=== PATIENT | female | born 1970 | race American Indian/Alaskan Native ===

== ENCOUNTER 2018-03-17 16:53 | Emergency (ER) | payer BC ==
[2018-03-17 16:53] VITALS: BMI 40.7
[2018-03-17 17:18] VITALS: BP 108/65; PULSE 67; RESP 18; TEMP 98.2; O2SAT 100
--- NOTE | 2018-03-17 19:24 | C.PDOC ---
History Of Present Illness <Milan Lorenzo - Last Filed: 03/17/18 19:10> <Rudy Velasquez - Last Filed: 03/17/18 20:18> CC "lower extremity swelling, shortness of breath" HPI: Patient is a 48 year old female with history of gastritis, gastric ulcer, diverticulitis, currently being treated for H. pylori, anemia, uterine fibroid, phlebolith who reports for evaluation of bilateral lower extremity swelling and pain. She states she woke up 6 days ago with swelling extending from left ankle up to left mid thigh and constant pain in her left calf described as sharp, shooting, electric shock like pain. She states she has also had some intermittent achy pain and swelling in her right calf for the past 6 days as well. She also reports she started to have chest pain 5 days ago, which has since resolved. She went to transport truck driver Dr. Mayo who did an EKG in the office which was reportedly normal. She also states she has been short of breath for the past 6 days; she states she gets short of breath easily and it takes her 10 mins to walk 2 blocks, which is not typical for her She was also referred to Dr. Woods for her shortness of breath and lower extremity swelling who referred patient in for evaluation in the ED. She denies recent travel, recent immobilization, recent surgery, control use. Social: denies smoking, alcohol or drug use. Currently works as a health educator. Family hx: father had prostate cancer PMH: gastritis, gastric ulcer, diverticulitis, currently being treated for H. pylori, anemia, uterine fibroid, phlebolith PSH: mini lapromyomectomy Meds: Flagyl, Doxycycline, Pantoprazole Allergies: oral Lamisil - rash and swelling, avocado- vomiting. Cardio: Gael Pulm: Chuck GI: [place] (Milan Lorenzo) <Milan Lorenzo - Last Filed: 03/17/18 19:10> <Rudy Velasquez - Last Filed: 03/17/18 20:18> Time Seen by Provider: 03/17/18 18:17 Chief Complaint (Nursing): Lower Extremity Problem/Injury Past Medical History - Medical History PMH: Anemia, Arthritis, Bronchitis, Diverticulitis, Gastritis, Gastrointestinal Ulcer, Hiatal Hernia, Hypercholesterolemia, Sleep Apnea Denies: Chronic Kidney Disease Surgical History: Endoscopy - Social History Hx Alcohol Use: Yes Hx Substance Use: No - Immunization History Hx Tetanus Toxoid Vaccination: Yes Hx Influenza Vaccination: Yes Hx Pneumococcal Vaccination: No <Milan Lorenzo - Last Filed: 03/17/18 19:10> Family History: States: No Known Family Hx <Rudy Velasquez - Last Filed: 03/17/18 20:18> Vital Signs: Last Vital Signs Temp 98.2 F 03/17/18 17:10 Pulse 67 03/17/18 17:10 Resp 18 03/17/18 17:10 BP 108/65 03/17/18 17:10 Pulse Ox 100 03/17/18 19:29 Review Of Systems Constitutional: Negative for: Fever, Chills Cardiovascular: Positive for: Edema (lower extremiti). Negative for: Palpitations Respiratory: Positive for: Shortness of Breath, SOB with Excertion. Negative for: Cough Gastrointestinal: Positive for: Abdominal Pain (mild left lower abdominal pain ) . Negative for: Nausea, Vomiting Genitourinary: Negative for: Dysuria, Frequency Musculoskeletal: Positive for: Leg Pain. Negative for: Foot Pain Neurological: Negative for: Change in Speech, Confusion, Seizures, Altered Mental Status, Dizziness <Milan Lorenzo - Last Filed: 03/17/18 19:10> Physical Exam - Physical Exam Appears: Non-toxic Skin: Normal Color, Warm, Dry, No Diaphoretic, No Pale, No Rash, No Cyanotic Head: Atraumatic, Normacephalic Eye(s): bilateral: PERRL, EOMI Oral Mucosa: Moist Neck: No Midline Cervical Tenderness Chest: No Tenderness, No Ecchymosis Cardiovascular: Rhythm Regular, No Friction Rub, No Murmur Respiratory: Normal Breath Sounds, No Rales, No Rhonchi, No Stridor, No Wheezing Gastrointestinal/Abdominal: Bowel Sounds, Soft, Tenderness (minimal LLQ tenderness ) Back: No CVA Tenderness Extremity: Calf Tenderness (bilateral tenderness, left>right, tenderness extending up to back of left thigh), Swelling (bilateral edema of lower extremities extending from ankles up to thigh. nonpitting edema. ) Pulses: Left Dorsalis Pedis: Normal, Right Dorsalis Pedis: Normal Neurological/Psych: Oriented x3, Normal Speech <Milan Lorenzo - Last Filed: 03/17/18 19:10> ED Course And Treatment O2 Sat by Pulse Oximetry: 100 <Milan Lorenzo - Last Filed: 03/17/18 19:10> - AMA Patient Left Against Medical Advice: The patient declines admission to the hospital and wishes to leave the Emergency Department. This action is against my medical advice. This decision was made with informed refusal. The patient was told that admission to the hospital is necessary. Explanation of the reasons why were discussed. The risks of leaving were explained to the patient and include, but are not limited to, worsening of known or currently unknown conditions, permanent disability and from undiagnosed or untreated conditions. The patient has the capacity to make this informed decision and understands my explanation of the current medical problem and risks of leaving. The patient voluntarily accepts these risks and signed an AMA form documenting our conversation. The patient was given the opportunity to ask questions and reconsider. The patient was encouraged to return to the Emergency Department at any time for further care. Medical Decision Making <Milan Lorenzo - Last Filed: 03/17/18 19:10> <Rudy Velasquez - Last Filed: 03/17/18 20:18> Medical Decision Making: Seen and examined with resident. 48 y/o F p/w leg swelling and chest pain and dyspnea. On examination, bilateral leg edema. Patient was informed that doppler not available at this time of day at [facility] but that she required further evaluation for chest pain and dyspnea including CTA Chest to rule out PE. She wished to leave and stated she will go to [facility] to have the testing performed. I informed her that although we can not do doppler currently, we could treat her for presumed DVT and have the test performed tomorrow morning and rule out PE in the ED now, but she continued to refuse the imaging here and decided to leave AMA. The risk of PE and sudden was explained to patient. (Rudy Velasquez) Disposition <Milan Lorenoz - Last Filed: 03/17/18 19:10> - Disposition Disposition Time: 19:44 <Rudy Velasquez - Last Filed: 03/17/18 20:18> - Disposition Disposition: AGAINST MEDICAL ADVICE Condition: UNKNOWN Instructions: Pulmonary Embolism (Blood Clot in the Lungs) Forms: [facility] ([place]) - Clinical Impression Clinical Impression: Leg swelling, Shortness of breath, Left against medical advice
[2018-03-17] MEDS ORDERED: Iodixanol 320 MG/ML 100 ML BOTTLE IV ONE (19:39)
== END 2018-03-17 20:05 | disposition left against medical advice (07) ==
LOC: C.ER 16:53
DX: R06.02 Shortness of breath (principal); M79.89 Other specified soft tissue disorders; E78.00 Pure hypercholesterolemia, unspecified
CPT/HCPCS: 99281; Q9967